=== PATIENT | male | born 1995 | race African-American/Black ===

== ENCOUNTER 2024-11-16 06:58 | Day surgery (SDC) | payer OTHER ==
[2024-11-14 13:32] VITALS: BMI 27.1
[2024-11-16] MEDS ORDERED: LIDOCAINE HCL/PF 1% SDV 5ML VIAL ONE (07:29)
[2024-11-16] MEDS ORDERED: BUPIVACAINE HCL/PF 0.75% 10 ML VIAL ONE (07:29)
[2024-11-16] MEDS ORDERED: ACETAMINOPHEN 500 MG TABLET (FP) PO PRN (08:47)
[2024-11-16 13:51] VITALS: BP 127/79; PULSE 86; RESP 20; TEMP 98
== END 2024-11-16 13:25 | disposition home or self-care (01) ==
LOC: JASU-SURG 06:58
PROVIDERS: ATTEND Pain Medicine Pain Medicine
PROC: 3E0T3BZ Introduction of Anesthetic Agent into Peripheral Nerves and Plexi, Percutaneous Approach (ICD-10-PCS; principal; 2024-11-16 12:21)
DX: M47.816 Spondylosis without myelopathy or radiculopathy, lumbar region (principal)
CPT/HCPCS: 76000-TC-FY